=== PATIENT | male | born 1965 | race African-American/Black ===

== ENCOUNTER 2017-06-24 00:51 | Emergency (ER) | payer OTHER, MEDICAID ==
[~2017-06-24] VITALS: Ht 170.2 cm; Wt 64.0 kg
[~2017-06-24 00:51] MED LIST: LAMO200T PO; TERB250T11 PO
[2017-06-24 01:41] LABS: HEMATOCRIT. 37.4 % (42.0-52.0); HEMOGLOBIN. 12.5 g/dL (14.0-18.0); MEAN CORPUSCULAR HEMOGLOBIN 29.7 pg (28.0-32.0); MEAN CORPUSCULAR VOLUME 89.1 fL (80.0-94.0); MEAN PLATELET VOLUME 7.6 fl (7.4-10.4); PLATELET 160 x1000/uL (130-400); RED CELL DISTRIBUTION WIDTH 13.2 % (11.6-14.6)
[2017-06-24 01:47] LABS: CHLORIDE 105 mEq/L (98-107)
[2017-06-24 01:56] LABS: CARBON DIOXIDE 24 mEq/L (21-32)
[2017-06-24 01:59] LABS: PHENYTOIN < 0.4 ug/mL (10-20)
[2017-06-24 02:42] LABS: ATYPICAL LYMPHOCYTES 1; PLATELET ESTIMATE NORMAL
[2017-06-24] MEDS ORDERED: PHENYTOIN SODIUM 500 MG in SODIUM CHLORIDE 0.9% 50 ML IV NR (04:45)
[2017-06-24 09:11] VITALS: BP 104/59
== END 2017-06-24 09:40 | disposition home or self-care (01) ==
LOC: ER 00:59
DX: R56.9 Unspecified convulsions (principal); Z88.6 Allergy status to analgesic agent; Z88.0 Allergy status to penicillin
CPT/HCPCS: 36415; 70450; 71010; 80053; 80185; 85025; 93005; 96374; 99285; J1165

== ENCOUNTER 2018-02-01 09:40 | Emergency (ER) | payer OTHER, MEDICAID ==
[~2018-02-01] VITALS: Ht 149.9 cm; Wt 50.0 kg
[~2018-02-01 09:40] MED LIST changes: -TERB250T11 PO; +TERB250T51 PO
[2018-02-01] MEDS ORDERED: PHENYTOIN SODIUM EXTENDED 100MG CAPSULE PO ONE (10:15)
[2018-02-01] MEDS ORDERED: PHENYTOIN SODIUM 500 MG in SODIUM CHLORIDE 0.9% 50 ML IV ONE (12:00)
[2018-02-01 20:00] VITALS: BP 110/63
== END 2018-02-01 20:41 | disposition home or self-care (01) ==
LOC: ER 09:59
DX: R56.9 Unspecified convulsions (principal); F17.200 Nicotine dependence, unspecified, uncomplicated; F14.10 Cocaine abuse, uncomplicated; Z88.0 Allergy status to penicillin; Z91.14 Patient's other noncompliance with medication regimen; Z88.6 Allergy status to analgesic agent
CPT/HCPCS: 36415; 80185; 96365; 99284; J1165; J7040

== ENCOUNTER 2018-10-01 00:40 | Inpatient (IN) | payer OTHER, MEDICAID ==
[~2018-10-01] VITALS: Ht 162.6 cm; Wt 47.6 kg
[2018-10-01 03:08] LABS: CHLORIDE 105 mEq/L (98-107)
[2018-10-01 08:30] VITALS: BP 101/66
[2018-10-01] MEDS ORDERED: ACETAMINOPHEN 325MG TABLET PO PRN (09:15)
[2018-10-01] MEDS ORDERED: LORAZEPAM 2MG/ML CPJ IV PRN (09:15)
[2018-10-01] MEDS ORDERED: ONDANSETRON HCL 4MG/2ML INJ IV PRN (09:15)
[2018-10-01 09:55] LABS: COLOR URINE YELLOW (YELLOW)
[2018-10-01 09:56] LABS: CLARITY URINE CLEAR (CLEAR); KETONES URINE NEGATIVE (NEGATIVE); LEUKOCYTE ESTERASE URINE NEGATIVE (NEGATIVE); NITRITE URINE NEGATIVE (NEGATIVE); OCCULT BLOOD URINE NEGATIVE (NEGATIVE); PROTEIN URINE NEGATIVE (NEGATIVE); SPECIFIC GRAVITY URINE 1.006 (1.005-1.030); UROBILINOGEN URINE 0.2 E.U./dL (0.2-1.0)
[2018-10-01 10:27] LABS: *AMPHETAMINES SCREEN URINE NEGATIVE (NEGATIVE); METHADONE URINE SCREEN NEGATIVE (NEGATIVE); PHENCYCLIDINE URINE SCREEN NEGATIVE (NEGATIVE)
[2018-10-01 10:28] LABS: *BARBITURATES SCREEN URINE NEGATIVE (NEGATIVE); *BENZODIAZEPINES SCREEN URINE NEGATIVE (NEGATIVE); *COCAINE SCREEN URINE NEGATIVE (NEGATIVE); CANNABINOID URINE SCREEN NEGATIVE (NEGATIVE); OPIATES URINE SCREEN NEGATIVE (NEGATIVE)
[2018-10-01 11:36] VITALS: BP 101/66
[2018-10-01 12:00] VITALS: BP 117/70
[2018-10-01 13:07] LABS: BASOPHILS % 0.6 % (0.0-2.0); EOSINOPHILS % 1.7 % (0.0-5.0); HEMATOCRIT. 36.1 % (42.0-52.0); HEMOGLOBIN. 11.9 g/dL (14.0-18.0); LYMPHOCYTES % 30.4 % (20.0-50.0); MEAN CORPUSCULAR HEMOGLOBIN 30.7 pg (28.0-32.0); MEAN CORPUSCULAR VOLUME 93.2 fL (80.0-94.0); MEAN PLATELET VOLUME 8.1 fl (7.4-10.4); MONOCYTES % 13.2 % (2.0-8.0); NEUTROPHILS % 54.1 % (40.0-76.0); PLATELET 151 x1000/uL (130-400); RED BLOOD CELL COUNT 3.88 mill/uL (4.7-6.1); RED CELL DISTRIBUTION WIDTH 14.1 % (11.6-14.6)
[2018-10-01 15:54] LABS: HEMATOCRIT 35.5 % (42.0-52.0); HEMOGLOBIN 11.8 g/dL (14.0-18.0); MEAN CORPUSCULAR HEMOGLOBIN 30.9 pg (28.0-32.0); MEAN CORPUSCULAR VOLUME 93.2 fL (80.0-94.0); PLATELET 153 x1000/uL (130-400); RED BLOOD CELL COUNT 3.81 mill/uL (4.7-6.1); RED CELL DISTRIBUTION WIDTH 14.4 % (11.6-14.6)
[2018-10-01 16:00] VITALS: BP 98/62
[2018-10-01 17:09] VITALS: BP 98/62
[2018-10-01] MEDS: LAMOTRIGINE 25MG TABLET PO SCH (18:24)
[2018-10-01 20:00] VITALS: BP 100/74
[2018-10-02] VITALS (7 sets, daily range): BP systolic 89–106; BP diastolic 52–72
[2018-10-02 07:01] LABS: HEMATOCRIT. 34.8 % (42.0-52.0); HEMOGLOBIN. 11.7 g/dL (14.0-18.0); MEAN CORPUSCULAR HEMOGLOBIN 31.1 pg (28.0-32.0); MEAN CORPUSCULAR VOLUME 92.8 fL (80.0-94.0); MEAN PLATELET VOLUME 7.5 fl (7.4-10.4); PLATELET 134 x1000/uL (130-400); RED BLOOD CELL COUNT 3.75 mill/uL (4.7-6.1); RED CELL DISTRIBUTION WIDTH 14.3 % (11.6-14.6)
[2018-10-02] MEDS: LAMOTRIGINE 25MG TABLET PO SCH ×2 (08:57→16:21)
[2018-10-02 10:05] LABS: CHLORIDE 104 mEq/L (98-107)
[2018-10-02 14:45] LABS: PLATELET ESTIMATE NORMAL
[2018-10-03] VITALS: BP 94/58
[2018-10-03 04:00] VITALS: BP 94/52
[2018-10-03 08:00] VITALS: BP 90/48
[2018-10-03] MEDS: LAMOTRIGINE 25MG TABLET PO SCH (09:50)
[2018-10-03 12:00] VITALS: BP 100/58
[2018-10-03 14:01] VITALS: BP 100/58
[2018-10-03] MEDS ORDERED: LAMOTRIGINE 25MG TABLET PO SCH (17:00)
== END 2018-10-03 15:08 | disposition home or self-care (01) | DRG 93 ==
LOC: ER 00:40 → 7WST 04:42 → ENRESERV 07:08
PROVIDERS: ADMIT Internal Medicine; ATTEND Internal Medicine
DX: G24.9 Dystonia, unspecified (principal); T42.0X5A Adverse effect of hydantoin derivatives, initial encounter; G40.909 Epilepsy, unspecified, not intractable, without status epilepticus; D64.9 Anemia, unspecified; H54.62 Unqualified visual loss, left eye, normal vision right eye; F17.210 Nicotine dependence, cigarettes, uncomplicated; Z88.0 Allergy status to penicillin; Z88.6 Allergy status to analgesic agent; Y92.89 Other specified places as the place of occurrence of the external cause
CPT/HCPCS: 36415; 80048; 80185; 80305; 85027; 99285

== ENCOUNTER 2018-10-06 21:58 | Emergency (ER) | payer OTHER, MEDICAID ==
[~2018-10-06] VITALS: Ht 170.2 cm; Wt 59.0 kg
[2018-10-06] MEDS ORDERED: LAMOTRIGINE 100MG TABLET PO SCH (23:30)
[2018-10-07] MEDS ORDERED: LORAZEPAM 2MG/ML CPJ ONE (03:07)
[2018-10-07] MEDS ORDERED: LORAZEPAM 2MG/ML CPJ IV ONE (05:15)
[2018-10-07 08:37] VITALS: BP 92/54
== END 2018-10-07 09:07 | disposition home or self-care (01) ==
LOC: ER 21:58
DX: G40.909 Epilepsy, unspecified, not intractable, without status epilepticus (principal); F14.10 Cocaine abuse, uncomplicated; F17.200 Nicotine dependence, unspecified, uncomplicated; Z79.899 Other long term (current) drug therapy; Z91.14 Patient's other noncompliance with medication regimen; Z88.0 Allergy status to penicillin; Z88.6 Allergy status to analgesic agent
CPT/HCPCS: 82962; 96374; 99283; J2060

== ENCOUNTER 2019-08-31 15:06 | Emergency (ER) | payer MEDICAID, MEDICARE, OTHER ==
[~2019-08-31] VITALS: Ht 165.1 cm; Wt 45.0 kg
[2019-08-31] MEDS ORDERED: SODIUM CHLORIDE 0.9% 1,000 ML IV ONE (16:20)
[2019-08-31 16:43] LABS: CLARITY URINE CLOUDY (CLEAR); COLOR URINE YELLOW (YELLOW); KETONES URINE TRACE (NEGATIVE); LEUKOCYTE ESTERASE URINE NEGATIVE (NEGATIVE); NITRITE URINE NEGATIVE (NEGATIVE); OCCULT BLOOD URINE NEGATIVE (NEGATIVE); PH URINE 7.5 (4.5-8.0); PROTEIN URINE NEGATIVE (NEGATIVE); SPECIFIC GRAVITY URINE 1.019 (1.005-1.030)
[2019-08-31 17:05] LABS: *AMPHETAMINES SCREEN URINE NEGATIVE (NEGATIVE); *BARBITURATES SCREEN URINE NEGATIVE (NEGATIVE); *BENZODIAZEPINES SCREEN URINE NEGATIVE (NEGATIVE); *COCAINE SCREEN URINE PRESUMTIVE POSITIVE (NEGATIVE); METHADONE URINE SCREEN NEGATIVE (NEGATIVE); OPIATES URINE SCREEN NEGATIVE (NEGATIVE)
[2019-08-31 17:06] LABS: CANNABINOID URINE SCREEN NEGATIVE (NEGATIVE); PHENCYCLIDINE URINE SCREEN NEGATIVE (NEGATIVE)
[2019-08-31 17:40] LABS: HEMATOCRIT. 39.4 % (42.0-52.0); MEAN CORPUSCULAR HEMOGLOBIN 30.3 pg (28.0-32.0); MEAN CORPUSCULAR VOLUME 91.9 fL (80.0-94.0); MEAN PLATELET VOLUME 7.9 fl (7.4-10.4); PLATELET 155 x1000/uL (130-400); RED BLOOD CELL COUNT 4.28 mill/uL (4.7-6.1); RED CELL DISTRIBUTION WIDTH 14.7 % (11.6-14.6)
[2019-08-31 17:47] LABS: CHLORIDE 107 mEq/L (98-107)
[2019-08-31 17:54] LABS: ETHANOL BLOOD < 10 mg/dL
[2019-08-31 18:06] LABS: PLATELET ESTIMATE NORMAL
[2019-08-31] MEDS ORDERED: PHENYTOIN SODIUM EXTENDED 100MG CAPSULE PO ONE (18:15)
[2019-08-31] MEDS ORDERED: PHENYTOIN 100 MG/4 ML UDC NG ONE (18:15)
[2019-08-31 21:31] VITALS: BP 110/73
== END 2019-08-31 21:33 | disposition home or self-care (01) ==
LOC: ER 15:06
DX: G40.909 Epilepsy, unspecified, not intractable, without status epilepticus (principal); T40.5X1A Poisoning by cocaine, accidental (unintentional), initial encounter; F14.188 Cocaine abuse with other cocaine-induced disorder; R42 Dizziness and giddiness; R53.1 Weakness; Y92.89 Other specified places as the place of occurrence of the external cause; R89.2 Abnormal level of other drugs, medicaments and biological substances in specimens from other organs, systems and tissues
CPT/HCPCS: 36415; 80053; 80185; 80305; 80320; 81003; 85025; 93005; 96360; 96361; 99284; J7030; G0480

== ENCOUNTER 2019-10-08 01:28 | Inpatient (IN) | payer MEDICARE, MEDICAID ==
[~2019-10-08] VITALS: Ht 162.6 cm; Wt 50.1 kg
[2019-10-08] VITALS (33 sets, daily range): BP systolic 83–130; BP diastolic 50–76
[2019-10-08] MEDS ORDERED: SODIUM CHLORIDE 0.9% 1,000 ML IV ONE (02:14)
[2019-10-08] MEDS ORDERED: PHENYTOIN SODIUM EXTENDED 100MG CAPSULE PO ONE (02:15)
[2019-10-08] MEDS ORDERED: LORAZEPAM 2MG/ML CPJ ONE (02:37)
[2019-10-08] MEDS ORDERED: PHENYTOIN SODIUM 500 MG in SODIUM CHLORIDE 0.9% 100 ML IV ONE (02:45)
[2019-10-08] MEDS ORDERED: LORAZEPAM 2MG/ML CPJ IV ONE (02:45)
[2019-10-08 03:26] LABS: MEAN CORPUSCULAR HEMOGLOBIN 30.5 pg (28.0-32.0); MEAN CORPUSCULAR VOLUME 91.5 fL (80.0-94.0); MEAN PLATELET VOLUME 8.8 fl (7.4-10.4); PLATELET 160 x1000/uL (130-400); RED BLOOD CELL COUNT 4.26 mill/uL (4.7-6.1); RED CELL DISTRIBUTION WIDTH 14.4 % (11.6-14.6)
[2019-10-08 04:11] LABS: CHLORIDE 99 mEq/L (98-107)
[2019-10-08 05:08] LABS: PLATELET ESTIMATE NORMAL
[2019-10-08] MEDS ORDERED: ONDANSETRON HCL 4MG/2ML INJ IV PRN (08:15)
[2019-10-08] MEDS ORDERED: HYDROCODONE/ACETAMINOPHEN 10/325MG TABLET PO PRN (08:15)
[2019-10-08] MEDS ORDERED: GUAIFENESIN 200MG/10ML SUGAR FREE UDC PO PRN (08:15)
[2019-10-08] MEDS ORDERED: LORAZEPAM 2MG/ML CPJ IV PRN (08:15)
[2019-10-08] MEDS ORDERED: ACETAMINOPHEN 325MG TABLET PO PRN (08:15)
[2019-10-08] MEDS ORDERED: CLONIDINE 0.1MG TABLET PO PRN (08:15)
[2019-10-08] MEDS ORDERED: MORPHINE SULFATE 2 MG/ML CPJ (NOT FOR IM USE) IV PRN (08:15)
[2019-10-08] MEDS ORDERED: DIPHENHYDRAMINE 50MG/ML VIAL IV PRN (08:15)
[2019-10-08] MEDS ORDERED: MAGNESIUM/ALUMINUM HYDROXIDE/SIMETHICONE 30ML UDC PO PRN (08:15)
[2019-10-08] MEDS ORDERED: HYDRALAZINE 20MG/ML VIAL IV PRN (08:15)
[2019-10-08] MEDS ORDERED: NA PHOS,M-B/NA PHOS,DI-BA ENEMA 118ML PR PRN (09:00)
[2019-10-08] MEDS ORDERED: DOCUSATE SODIUM 100MG CAPSULE PO PRN (09:00)
[2019-10-08] MEDS ORDERED: IPRATROPIUM/ALBUTEROL 0.5-3(2.5)MG/3ML NEB HHN PRN (09:00)
[2019-10-08] MEDS: DEXT 5%/0.45% NACL 1000ML 1,000 ML IV SCH (09:38)
[2019-10-08] MEDS ORDERED: GADOBENATE DIMEGLUMINE 529 MG/ML 10ML IV ONE (12:14)
[2019-10-08 12:59] LABS: INR 1.1; PROTHROMBIN TIME 11.2 sec (9.6-11.0)
[2019-10-08 17:45] LABS: *AMPHETAMINES SCREEN URINE NEGATIVE (NEGATIVE); *BARBITURATES SCREEN URINE NEGATIVE (NEGATIVE); *BENZODIAZEPINES SCREEN URINE NEGATIVE (NEGATIVE)
[2019-10-08 17:46] LABS: *COCAINE SCREEN URINE PRESUMTIVE POSITIVE (NEGATIVE); CANNABINOID URINE SCREEN NEGATIVE (NEGATIVE); METHADONE URINE SCREEN NEGATIVE (NEGATIVE); OPIATES URINE SCREEN NEGATIVE (NEGATIVE); PHENCYCLIDINE URINE SCREEN NEGATIVE (NEGATIVE)
[2019-10-08 18:13] LABS: CREATINE KINASE 804 IU/L (39-308)
[2019-10-08 18:14] LABS: CREATINE KINASE MB FRACTION 2.3 ng/mL (0.5-3.6)
[2019-10-08] MEDS: LEVETIRACETAM 500 MG in SODIUM CHLORIDE 0.9% 100 ML IV SCH (20:38)
[2019-10-08] MEDS: SODIUM CHLORIDE 0.9% INJ 3ML FLUSH IVF SCH (22:35)
[2019-10-09] VITALS (30 sets, daily range): BP systolic 80–127; BP diastolic 49–80
[2019-10-09 00:19] LABS: CREATINE KINASE 918 IU/L (39-308)
[2019-10-09 00:20] LABS: CREATINE KINASE MB FRACTION 2.4 ng/mL (0.5-3.6)
[2019-10-09] MEDS: SODIUM CHLORIDE 0.9% INJ 3ML FLUSH IVF SCH ×3 (05:17→21:29)
[2019-10-09] MEDS: DEXT 5%/0.45% NACL 1000ML 1,000 ML IV SCH ×2 (05:29→16:52)
[2019-10-09] MEDS ORDERED: LIDOCAINE HCL 1% 20ML VIAL (Pyxis) INJ ONE (06:47)
[2019-10-09] MEDS: LEVETIRACETAM 500 MG in SODIUM CHLORIDE 0.9% 100 ML IV SCH ×2 (08:46→21:29)
[2019-10-09 12:53] LABS: BASOPHILS % 0.4 % (0.0-2.0); EOSINOPHILS % 0.6 % (0.0-5.0); HEMATOCRIT. 36.5 % (42.0-52.0); HEMOGLOBIN. 12.4 g/dL (14.0-18.0); LYMPHOCYTES % 20.8 % (20.0-50.0); MEAN CORPUSCULAR HEMOGLOBIN 30.9 pg (28.0-32.0); MEAN CORPUSCULAR VOLUME 91.3 fL (80.0-94.0); MEAN PLATELET VOLUME 8.4 fl (7.4-10.4); MONOCYTES % 12.4 % (2.0-8.0); NEUTROPHILS % 65.8 % (40.0-76.0); PLATELET 120 x1000/uL (130-400); RED CELL DISTRIBUTION WIDTH 13.7 % (11.6-14.6)
[2019-10-09 12:59] LABS: CHLORIDE 109 mEq/L (98-107)
[2019-10-09 13:09] LABS: LDL CHOLESTEROL 96 mg/dL (5-100)
[2019-10-09 13:10] LABS: HDL CHOLESTEROL 37 mg/dL (40-59)
[2019-10-09 13:11] LABS: T4 FREE 0.92 ng/dL (0.76-1.46)
[2019-10-10] VITALS (18 sets, daily range): BP systolic 104–127; BP diastolic 40–82
[2019-10-10 05:59] LABS: CHLORIDE 104 mEq/L (98-107)
[2019-10-10 06:04] LABS: BASOPHILS % 0.3 % (0.0-2.0); EOSINOPHILS % 1.2 % (0.0-5.0); HEMATOCRIT. 38.9 % (42.0-52.0); HEMOGLOBIN. 13.1 g/dL (14.0-18.0); LYMPHOCYTES % 31.7 % (20.0-50.0); MEAN CORPUSCULAR HEMOGLOBIN 30.5 pg (28.0-32.0); MEAN CORPUSCULAR VOLUME 90.8 fL (80.0-94.0); MEAN PLATELET VOLUME 8.3 fl (7.4-10.4); MONOCYTES % 14.5 % (2.0-8.0); NEUTROPHILS % 52.3 % (40.0-76.0); PLATELET 129 x1000/uL (130-400); RED BLOOD CELL COUNT 4.28 mill/uL (4.7-6.1); RED CELL DISTRIBUTION WIDTH 13.7 % (11.6-14.6)
[2019-10-10] MEDS: SODIUM CHLORIDE 0.9% INJ 3ML FLUSH IVF SCH ×3 (06:20→21:02)
[2019-10-10] MEDS: DEXT 5%/0.45% NACL 1000ML 1,000 ML IV SCH (07:23)
[2019-10-10] MEDS: LEVETIRACETAM 500 MG in SODIUM CHLORIDE 0.9% 100 ML IV SCH (09:31)
[2019-10-10] MEDS: LEVETIRACETAM 500MG TABLET PO SCH (20:16)
[2019-10-10] MEDS: RISPERIDONE 0.5MG TABLET PO SCH (20:19)
[2019-10-11] VITALS: BP 106/58
[2019-10-11 04:00] VITALS: BP 101/65
[2019-10-11 06:35] LABS: HEMATOCRIT. 41.4 % (42.0-52.0); HEMOGLOBIN. 13.6 g/dL (14.0-18.0); MEAN CORPUSCULAR HEMOGLOBIN 30.1 pg (28.0-32.0); MEAN CORPUSCULAR VOLUME 91.7 fL (80.0-94.0); MEAN PLATELET VOLUME 8.2 fl (7.4-10.4); PLATELET 138 x1000/uL (130-400); RED BLOOD CELL COUNT 4.51 mill/uL (4.7-6.1); RED CELL DISTRIBUTION WIDTH 13.7 % (11.6-14.6)
[2019-10-11 06:51] LABS: CHLORIDE 106 mEq/L (98-107)
[2019-10-11 08:05] VITALS: BP 99/62
[2019-10-11] MEDS: RISPERIDONE 0.5MG TABLET PO SCH ×2 (08:09→20:38)
[2019-10-11] MEDS: LEVETIRACETAM 500MG TABLET PO SCH ×2 (08:09→20:38)
[2019-10-11 12:00] VITALS: BP 90/62
[2019-10-11 12:30] LABS: PLATELET ESTIMATE NORMAL
[2019-10-11] MEDS: SODIUM CHLORIDE 0.9% INJ 3ML FLUSH IVF SCH ×2 (14:00→21:06)
[2019-10-11 16:00] VITALS: BP 113/74
[2019-10-11 20:00] VITALS: BP 112/76
[2019-10-12] VITALS: BP 103/69
[2019-10-12 04:00] VITALS: BP_SYST 103; BP_SYST 108; BP_DIAS 69; BP_DIAS 72
[2019-10-12] MEDS: SODIUM CHLORIDE 0.9% INJ 3ML FLUSH IVF SCH ×3 (05:16→21:03)
[2019-10-12 07:28] LABS: HEMATOCRIT. 43.1 % (42.0-52.0); HEMOGLOBIN. 14.6 g/dL (14.0-18.0); MEAN CORPUSCULAR HEMOGLOBIN 30.6 pg (28.0-32.0); MEAN CORPUSCULAR VOLUME 90.7 fL (80.0-94.0); MEAN PLATELET VOLUME 8.9 fl (7.4-10.4); PLATELET 146 x1000/uL (130-400); RED BLOOD CELL COUNT 4.75 mill/uL (4.7-6.1); RED CELL DISTRIBUTION WIDTH 13.8 % (11.6-14.6)
[2019-10-12 07:56] LABS: CHLORIDE 102 mEq/L (98-107)
[2019-10-12 08:00] VITALS: BP 97/71
[2019-10-12] MEDS: LEVETIRACETAM 500MG TABLET PO SCH ×2 (08:24→21:02)
[2019-10-12] MEDS: RISPERIDONE 0.5MG TABLET PO SCH ×2 (08:24→21:02)
[2019-10-12 12:00] VITALS: BP 98/70
[2019-10-12 13:19] LABS: PLATELET ESTIMATE NORMAL
[2019-10-12 16:00] VITALS: BP 104/76
[2019-10-12 20:00] VITALS: BP 100/70
[2019-10-13] VITALS: BP 106/72
[2019-10-13 04:00] VITALS: BP 104/76
[2019-10-13] MEDS: SODIUM CHLORIDE 0.9% INJ 3ML FLUSH IVF SCH ×2 (05:35→14:00)
[2019-10-13 08:00] VITALS: BP 97/67
[2019-10-13 09:01] LABS: HEMATOCRIT. 41.2 % (42.0-52.0); HEMOGLOBIN. 13.7 g/dL (14.0-18.0); MEAN CORPUSCULAR HEMOGLOBIN 30.4 pg (28.0-32.0); MEAN PLATELET VOLUME 8.4 fl (7.4-10.4); PLATELET 142 x1000/uL (130-400); RED BLOOD CELL COUNT 4.52 mill/uL (4.7-6.1); RED CELL DISTRIBUTION WIDTH 13.7 % (11.6-14.6)
[2019-10-13] MEDS: LEVETIRACETAM 500MG TABLET PO SCH (09:08)
[2019-10-13] MEDS: RISPERIDONE 0.5MG TABLET PO SCH (09:08)
[2019-10-13 09:40] LABS: CHLORIDE 102 mEq/L (98-107)
[2019-10-13 12:00] VITALS: BP 99/66
[2019-10-13 13:40] LABS: PLATELET ESTIMATE NORMAL
[2019-10-13 15:00] VITALS: BP 99/66
[2019-10-13 16:00] VITALS: BP 100/64
== END 2019-10-13 19:00 | disposition home or self-care (01) | DRG 100 ==
LOC: ER 01:28 → EDBEDREQ 05:06 → EDBEDREQTM 05:34 → ENRESERV 07:16 → 6WST 08:04 → MICUSO 13:13 → 6WST 10-10 10:28
PROVIDERS: ADMIT Internal Medicine; ATTEND Internal Medicine
PROC: 02HV33Z Insertion of Infusion Device into Superior Vena Cava, Percutaneous Approach (ICD-10-PCS; principal; 2019-10-09)
PROC: B548ZZA Ultrasonography of Superior Vena Cava, Guidance (ICD-10-PCS; 2019-10-09)
DX: G40.909 Epilepsy, unspecified, not intractable, without status epilepticus (principal); I62.03 Nontraumatic chronic subdural hemorrhage; M62.82 Rhabdomyolysis; R62.50 Unspecified lack of expected normal physiological development in childhood; F14.10 Cocaine abuse, uncomplicated; Z78.1 Physical restraint status; Z86.73 Personal history of transient ischemic attack (TIA), and cerebral infarction without residual deficits; Z88.0 Allergy status to penicillin; Z88.6 Allergy status to analgesic agent; Z91.19 Patient's noncompliance with other medical treatment and regimen; Z79.899 Other long term (current) drug therapy
CPT/HCPCS: 36415; 70553; 71045; 76937; 80048; 80061; 80185; 80305; 82550; 82553; 84439; 84443; 84484; 85651; 93970; 99285; A9577; C1725; C1769; C1893; J1165; J1953; J2060; J3490; J7030; J7050

== ENCOUNTER 2019-11-05 02:07 | Emergency (ER) | payer MEDICARE, MEDICAID ==
[~2019-11-05] VITALS: Ht 160 cm; Wt 59.0 kg
[2019-11-05] MEDS: LORAZEPAM 2MG/ML CPJ IV ONE (04:32)
[2019-11-05 05:14] LABS: BASOPHILS % 0.4 % (0.0-2.0); EOSINOPHILS % 0.8 % (0.0-5.0); HEMATOCRIT. 36.2 % (42.0-52.0); HEMOGLOBIN. 12.1 g/dL (14.0-18.0); LYMPHOCYTES % 19.1 % (20.0-50.0); MEAN CORPUSCULAR HEMOGLOBIN 30.7 pg (28.0-32.0); MEAN PLATELET VOLUME 8.7 fl (7.4-10.4); MONOCYTES % 13.6 % (2.0-8.0); NEUTROPHILS % 66.1 % (40.0-76.0); PLATELET 155 x1000/uL (130-400); RED BLOOD CELL COUNT 3.93 mill/uL (4.7-6.1)
[2019-11-05 05:17] LABS: CHLORIDE 107 mEq/L (98-107)
[2019-11-05 05:44] LABS: INR 1.1; PROTHROMBIN TIME 11.1 sec (9.6-11.0)
[2019-11-05] MEDS: PHENYTOIN SODIUM EXTENDED 100MG CAPSULE PO ONE (05:45)
[2019-11-05] MEDS: SODIUM CHLORIDE 0.9% 1,000 ML IV ONE (06:52)
[2019-11-05] MEDS: PHENYTOIN SODIUM 1,000 MG in SODIUM CHLORIDE 0.9% 100 ML IV ONE (07:36)
[2019-11-06 16:00] VITALS: BP 123/74
== END 2019-11-06 17:06 | disposition home or self-care (01) ==
LOC: ER 02:07
DX: R56.9 Unspecified convulsions (principal); Z91.14 Patient's other noncompliance with medication regimen; Z88.0 Allergy status to penicillin; Z88.6 Allergy status to analgesic agent
CPT/HCPCS: 36415; 70450; 80053; 80185; 82962; 85025; 85610; 96374; 96375; 99284; J1165; J2060; J7030; J7050

== ENCOUNTER 2019-12-12 12:47 | Emergency (ER) | payer MEDICARE, MEDICAID ==
[~2019-12-12] VITALS: Ht 162.6 cm; Wt 69.0 kg
[~2019-12-12 12:47] MED LIST changes: -LAMO200T PO; +LAMO200T9 PO
[2019-12-12] MEDS ORDERED: SODIUM CHLORIDE 0.9% 1,000 ML IV ONE (13:25)
[2019-12-12] MEDS ORDERED: LEVETIRACETAM 1000MG/100ML 100 ML IV ONE (13:30)
[2019-12-12 14:38] LABS: HEMATOCRIT. 39.2 % (42.0-52.0); HEMOGLOBIN. 12.8 g/dL (14.0-18.0); MEAN CORPUSCULAR HEMOGLOBIN 30.2 pg (28.0-32.0); MEAN CORPUSCULAR VOLUME 92.1 fL (80.0-94.0); MEAN PLATELET VOLUME 8.1 fl (7.4-10.4); PLATELET 143 x1000/uL (130-400); RED BLOOD CELL COUNT 4.26 mill/uL (4.7-6.1); RED CELL DISTRIBUTION WIDTH 14.6 % (11.6-14.6)
[2019-12-12 14:44] LABS: CHLORIDE 113 mEq/L (98-107)
[2019-12-12 14:51] LABS: ETHANOL BLOOD < 10 mg/dL
[2019-12-12 15:01] LABS: CLARITY URINE CLEAR (CLEAR); COLOR URINE YELLOW (YELLOW); KETONES URINE NEGATIVE (NEGATIVE); LEUKOCYTE ESTERASE URINE NEGATIVE (NEGATIVE); NITRITE URINE NEGATIVE (NEGATIVE); OCCULT BLOOD URINE NEGATIVE (NEGATIVE); PROTEIN URINE NEGATIVE (NEGATIVE); SPECIFIC GRAVITY URINE 1.021 (1.005-1.030)
[2019-12-12 15:02] LABS: PLATELET ESTIMATE NORMAL
[2019-12-12 15:21] LABS: *AMPHETAMINES SCREEN URINE NEGATIVE (NEGATIVE); *BARBITURATES SCREEN URINE NEGATIVE (NEGATIVE); *BENZODIAZEPINES SCREEN URINE NEGATIVE (NEGATIVE); *COCAINE SCREEN URINE PRESUMTIVE POSITIVE (NEGATIVE)
[2019-12-12 15:22] LABS: CANNABINOID URINE SCREEN NEGATIVE (NEGATIVE); METHADONE URINE SCREEN NEGATIVE (NEGATIVE); OPIATES URINE SCREEN NEGATIVE (NEGATIVE); PHENCYCLIDINE URINE SCREEN NEGATIVE (NEGATIVE)
[2019-12-12 19:44] VITALS: BP 112/78
== END 2019-12-12 19:44 | disposition home or self-care (01) ==
LOC: ER 12:51
DX: G40.909 Epilepsy, unspecified, not intractable, without status epilepticus (principal); R62.50 Unspecified lack of expected normal physiological development in childhood
CPT/HCPCS: 36415; 70450; 80053; 80305; 80320; 81003; 85025; 96365; 99284; J1953; J7030; G0480